=== PATIENT | male | born 1990 | race Caucasian/White ===

== ENCOUNTER 2024-01-10 11:42 | Emergency (ER) | payer OTHER, SELFPAY ==
[2024-01-10 11:59] VITALS: BP 140/99
[2024-01-10 12:41] LABS: % Basophils 0.4 % (0-2); % Eosinophils 0.3 % (0-6); % Immature Granulocytes 0.4 % (0-0.5); % Lymphocytes 18.2 % (20.5-51.1); % Monocytes 6.4 % (1.7-9.3); % Neutrophils 74.3 % (42.2-75.2); ALT (SGPT) 403 U/L (0-50); AST (SGOT) 123 U/L (17-59); Absolute Lymphocytes 2.1 10^3/uL (1.2-3.4); Absolute Monocytes 0.7 10^3/uL (0.1-0.6); Absolute Neutrophils 8.4 10^3/uL (1.4-6.5); Alkaline Phosphatase 35 U/L (38-126); Blood Urea Nitrogen 18 mg/dl (9-20); Calcium 10.1 mg/dl (8.4-10.2); Carbon Dioxide 29 mmol/L (22-30); Chloride 98 mmol/L (98-107); Glucose 94 mg/dl (70-99); Hematocrit 52.2 % (39.0-52.0); Hemoglobin 18.5 g/dL (13.0-18.0); Mean Corp Hgb Conc. 35.4 g/dL (33.0-37.0); Mean Corpuscular Volume 90.2 fL (80.0-94.0); Mean Platelet Volume 10.8 fL (7.4-10.4); Nucleated Red Blood Cells % 0 % (-); Platelet Count 249 10^3/uL (130-400); Potassium 4.9 mmol/L (3.5-5.1); Red Blood Cell Count 5.79 10^6/uL (4.70-6.10); Red Cell Dist. Width 13.7 % (11.5-14.5); Sodium 139 mmol/L (135-145); Total Bilirubin 0.8 mg/dl (0.2-1.3); Total Protein 7.6 g/dl (6.3-8.2); White Blood Cell Count 11.3 10^3/uL (4.8-10.8); eGFR > 60.00
[2024-01-10 12:51] LABS: Troponin I < 0.012 ng/ml
[2024-01-10 14:09] VITALS: BMI 34.4
--- NOTE | 2024-01-10 14:34 | ED.GENMED ---
History of Present Illness
General
Chief Complaint: Chest Pain
Source: patient
Exam Limitations: none
Time Seen by Provider: 01/10/24 13:52
History of Present Illness
History of Present Illness:
See MDM
Past History
Past History
ED Past Medical History: None
ED Past Surgical History: Orthopedic and Other ([place] teeth)
Social History
Personal: Single
Living: with family
Phy Exam
Physical Exam
Physical Exam:
See MDM
Scores
Heart Score for Chest Pain Patients
STEMI patient?: No
History: Slightly or Non-Suspicious
ECG: Normal
Age: </= 45 years
Risk Factors: No Risk Factors
Troponin: </= Normal Limit
Heart Score for Chest Pain Patients: 0
Heart Score Risk: 2.5% MACE over next 6 weeks
Course
Orders/Labs/Results
Orders:
Orders
01/10/24 11:43
Electrocardiogram (*1) Urgent
Reason for Study: Chest Pain
01/10/24 11:44
EKG- Treatment ONCE
01/10/24 12:15
Complete Blood Count/With Diff Urgent
Comprehensive Metabolic Panel Urgent
Creatine Phosphokinase Urgent
Comment: ADD ON
Lipase Urgent
Comment: ADD ON
Monotest Urgent
Comment: ADD ON
Troponin I Urgent
01/10/24 14:24
Add On- LAB Urgent
Tests Added?: lipase
01/10/24 14:25
Add On- LAB Urgent
Tests Added?: monotest
01/10/24 14:33
Add On- LAB Urgent
Tests Added?: CPK
01/10/24 14:36
US Abdomen Complete/Upper Urgent
Comment:
Reason For Exam: elevated LFTs, chest pain
Abnormal Lab Results
01/10/24
12:15
WBC 11.3 H 10^3/uL
(4.8-10.8)
Hgb 18.5 H g/dL
(13.0-18.0)
Hct 52.2 H %
(39.0-52.0)
MCH 32.0 H pg
(27.0-31.0)
MPV 10.8 H fL
(7.4-10.4)
Absolute Neuts (auto) 8.4 H 10^3/uL
(1.4-6.5)
Absolute Monos (auto) 0.7 H 10^3/uL
(0.1-0.6)
Lymphocytes % 18.2 L %
(20.5-51.1)
Creatinine 1.4 H mg/dL
(0.7-1.3)
AST 123 H U/L
(17-59)
ALT 403 H U/L
(0-50)
Alkaline Phosphatase 35 L U/L
(38-126)
Creatine Kinase 1041 H U/L
(55-170)
01/10/24 12:15
01/10/24 12:15
Vital Signs
Initial and Last Documented VS:
Initial Vital Signs
Temp Pulse Resp BP Pulse Ox
98.4 F 76 18 140/99 98
01/10/24 11:59 01/10/24 11:59 01/10/24 11:59 01/10/24 11:59 01/10/24 11:59
Last Documented Vital Signs
Temp Pulse Resp BP Pulse Ox
98.4 F 76 18 140/99 98
01/10/24 11:59 01/10/24 11:59 01/10/24 11:59 01/10/24 11:59 01/10/24 11:59
MDM/Problems Addressed
Differential Diagnosis Includes:
HPI and MDM Narrative:
33-year-old male presenting for evaluation of pounding heartbeat that occurred at rest last night. During this time, he felt uncomfortable. This morning, he spoke to his doctor who advised him to go to the emergency department. Patient denies any
active symptoms. EKG within normal limits. Troponin negative. Patient has elevated LFTs. He denies pain with eating. Will obtain ultrasound of gallbladder
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 His LFTs are potentially related to rhabdomyolysis. Will obtain CPK
Will look for alternative source of LFT elevation such as mononucleosis testing
Physical exam
General: Well appearing and non-toxic
HEENT: protecting airway
Neck: appears supple
CV: No evidence of cyanosis. Regular rate and rhythm. No murmur
Resp: No accessory muscle use
Abd: Non-distended. No significant abdominal tenderness
Extremities: No deformities
Neuro: alert
Psych: Normal affect
Skin: Intact
Problems Addressed including Acute and Chronic Conditions affecting care:
1. Palpitations
Acuity: acute
Prognosis: stable
Details: Currently symptom-free. Discussed outpatient Holter monitor
2. Elevated LFTs
Acuity: acute
Prognosis: stable
Details: Will obtain ultrasound to rule out gallbladder pathology. Potentially in the setting of his muscle building supplements
Updates
CPK greater than 1000 which could answer some of the LFT elevation. Discussed increased water intake and have this evaluated by his PCP.
Differential Diagnosis (but not limited to): Rhabdomyolysis, SVT, A-fib, cholecystitis
Testing considered: Second troponin but doubt ACS given duration since symptoms with a negative Trop
Drug therapy (if applicable): OTC meds, please see d/c instruction regarding Rx drugs
Amount and/or Complexity of Data Reviewed
Clinical info obtained from: Patient
External data reviewed: N/A
Labs I independently reviewed (but not limited to): Troponin normal, elevated LFTs
Radiology: Ultrasound report reviewed
Pulse Ox: not hypoxic
EKG independently reviewed: Sinus rhythm, normal axis, no STEMI
Abrasive Band Winder: N/A
Critical Care: N/A
Risk of Complication:
Social Determinants of health: Good social support
Discussed with other providers: N/A
Escalation of Care includes Admit/Obs: After being observed in the Emergency Department, pt stable for discharge.
Occasional wrong word or 'sound a like' substitutions may have occurred due to the inherent limitations of voice recognition software. Read the chart carefully and recognize, using context, where substitutions have occurred.
*Critical Care Note
Total Time (30-74mins, 75-104mins- exclusive of procedures): Not Applicable
ED Attending Note
-
Portions of this chart may have been created with voice recognition software.� Occasional wrong word or��sound alike� substitutions may have occurred due to the inherent limitations of voice recognition software.
Discharge Plan
Departure
Patient Disposition: Home (Routine Discharge)
Date of Disposition: 01/10/24
Time of Disposition: 17:14
Patient with high blood pressure during this ER visit?: No
Discharge Problem:
Palpitations, Elevated LFTs
Prescriptions:
No Action
atenolol 25 MG tablet
25 mg PO DAILY
Patient Comments:
pt has a long Q wave
Multivitamin
DAILY
clindamycin HCl 300 MG capsule
300 mg PO QID Qty: 40 0RF
Referrals:
Shiv Zimmerman DO [Family Provider] -
Activity Restrictions/Additional Instructions:
Please return for any worsening symptoms.
You may return at any time if you have further concerns.
Please follow up with your doctor at the first available appointment, preferably this week. Please discuss outpatient Holter monitor. Your elevated liver function could be related to the rhabdomyolysis that we discussed earlier. Please drink
plenty of water.
Thank you for choosing [facility].
Interventions
Interventions:
*Risk Screen - Suicide Last Done: 01/10/24 11:59
*General Assessment Last Done: 01/10/24 11:59
*Neglect/Abuse Screening Last Done: 01/10/24 11:59
ED- Cardiac Assessment Last Done: 01/10/24 14:09
Discharge Date and Time
Print Language: CROATIAN
[2024-01-10 15:19] LABS: Lipase 94 U/L (23-300)
[2024-01-10 15:29] LABS: Creatine Phosphokinase 1041 U/L (55-170)
[2024-01-10 15:52] LABS: Monotest Negative (Negative)
[2024-01-10 17:20] VITALS: BP 133/88
== END 2024-01-10 17:30 | disposition home or self-care (01) ==
LOC: EMR 11:42
PROVIDERS: Emergency Medicine; EMERGENCY PHYSICIAN Student in an Organized Health Care Education/Training Program; FAMILY PHYSICIAN Family Medicine
DX: R00.2 Palpitations (principal); R07.9 Chest pain, unspecified; R94.5 Abnormal results of liver function studies
CPT/HCPCS: 99284; 76700; 80053; 82550; 83690; 84484; 85025; 86308; 93005

== ENCOUNTER → 2024-03-17 15:40 | Outpatient (REF) | payer SELFPAY | LOC: RAD 15:40 | PROVIDERS: ATTENDING PHYSICIAN Family Medicine | DX: E78.00 Pure hypercholesterolemia, unspecified (principal) | CPT/HCPCS: 75571 ==

== ENCOUNTER → 2024-03-25 17:21 | Outpatient (REF) | payer OTHER, SELFPAY | LOC: RCS 17:21 | PROVIDERS: ATTENDING PHYSICIAN Family Medicine | DX: R07.89 Other chest pain (principal) | CPT/HCPCS: 93306 ==

== ENCOUNTER → 2024-09-04 08:37 | Outpatient (REF) | payer OTHER, SELFPAY | LOC: PAVMRI 08:37 | PROVIDERS: ATTENDING PHYSICIAN Specialist; FAMILY PHYSICIAN Family Medicine | DX: M25.521 Pain in right elbow (principal) | CPT/HCPCS: 73221 ==

== ENCOUNTER 2025-01-04 08:48 | Outpatient (RCR) | payer OTHER, SELFPAY | END 2025-01-04 23:59 | disposition home or self-care (01) | LOC: RPT 08:48 | PROVIDERS: ATTENDING PHYSICIAN Orthopaedic Surgery; FAMILY PHYSICIAN Family Medicine | DX: Z47.89 Encounter for other orthopedic aftercare (principal); M25.561 Pain in right knee; S76.111D Strain of right quadriceps muscle, fascia and tendon, subsequent encounter; R26.89 Other abnormalities of gait and mobility; Z73.6 Limitation of activities due to disability; M62.81 Muscle weakness (generalized); X50.1XXD Overexertion from prolonged static or awkward postures, subsequent encounter | CPT/HCPCS: 97110; 97162; 97535 ==

== ENCOUNTER 2025-02-02 08:24 | Outpatient (RCR) | payer OTHER, SELFPAY | END 2025-02-05 23:59 | disposition home or self-care (01) | LOC: RPT 08:24 | PROVIDERS: ATTENDING PHYSICIAN Orthopaedic Surgery; FAMILY PHYSICIAN Family Medicine | DX: Z47.89 Encounter for other orthopedic aftercare (principal); M25.561 Pain in right knee; S76.111D Strain of right quadriceps muscle, fascia and tendon, subsequent encounter; R26.89 Other abnormalities of gait and mobility; Z73.6 Limitation of activities due to disability; M62.81 Muscle weakness (generalized); X50.1XXD Overexertion from prolonged static or awkward postures, subsequent encounter | CPT/HCPCS: 97110; 97140; 97530 ==

== ENCOUNTER 2025-03-02 10:14 | Outpatient (RCR) | payer OTHER, SELFPAY | END 2025-03-02 23:59 | disposition home or self-care (01) | LOC: RPT 10:14 | PROVIDERS: ATTENDING PHYSICIAN Orthopaedic Surgery; FAMILY PHYSICIAN Family Medicine | DX: Z47.89 Encounter for other orthopedic aftercare (principal); M25.561 Pain in right knee; S76.111D Strain of right quadriceps muscle, fascia and tendon, subsequent encounter; R26.89 Other abnormalities of gait and mobility; Z73.6 Limitation of activities due to disability; M62.81 Muscle weakness (generalized); X50.1XXD Overexertion from prolonged static or awkward postures, subsequent encounter | CPT/HCPCS: 97110; 97530; 97535 ==

== ENCOUNTER 2025-04-06 07:41 | Outpatient (RCR) | payer OTHER, SELFPAY | END 2025-04-06 23:59 | disposition home or self-care (01) | LOC: RPT 07:41 | PROVIDERS: ATTENDING PHYSICIAN Orthopaedic Surgery; FAMILY PHYSICIAN Family Medicine | DX: Z47.89 Encounter for other orthopedic aftercare (principal); M25.561 Pain in right knee; S76.111D Strain of right quadriceps muscle, fascia and tendon, subsequent encounter; R26.89 Other abnormalities of gait and mobility; Z73.6 Limitation of activities due to disability; M62.81 Muscle weakness (generalized); X50.1XXD Overexertion from prolonged static or awkward postures, subsequent encounter | CPT/HCPCS: 97110; 97112; 97140; 97530; 97535 ==